=== PATIENT | male | born 1995 | race Two or more races ===

== ENCOUNTER 2020-07-06 12:50 | Emergency (ER) | payer OTHER, SELFPAY ==
[2020-07-06 14:07] VITALS: BP 170/102; PULSE 87; RESP 16; TEMP 37.1; O2SAT 98; BMI 23.6
--- NOTE | 2020-07-06 14:07 | ED_ITS ---
HPI - General Adult General Chief complaint: Skin/Abscess/Foreign Body <Marian Do NP - Last Filed: 07/06/20 14:08> Stated complaint: cyst <Marian Do NP - Last Filed: 07/06/20 14:08> Time Seen by Provider: 07/06/20 14:07 <Marian Do NP - Last Filed: 07/06/20 14:08> Source: patient <MARQUEZ Lea - Last Filed: 07/06/20 18:03> Mode of arrival: ambulatory <MARQUEZ Lea - Last Filed: 07/06/20 18:03> Limitations: no limitations <MARQUEZ Lea - Last Filed: 07/06/20 18:03> History of Present Illness HPI narrative: 25yoM c PMHx of asthma presenting to the ED c c/o an abscess to his left buttocks for the past 3 days worse today. Reports he has had this twice in the past which has always resolved on its own. Denies history of MRSA that he is aware about. Denies any fevers or any other symptoms complaints or concerns at this time. <MARQUEZ Lea - Last Filed: 07/06/20 18:03> Related Data Home medications: Previous Rx's Medication Instructions Recorded acetaminophen [Tylenol Extra 1,000 mg PO QID PRN #14 tab 07/06/20 Strength] cephalexin [Keflex] 500 mg PO Q6H 10 Days #40 cap 07/06/20 doxycycline monohydrate 100 mg PO BID 10 Days #20 cap 07/06/20 ibuprofen 800 mg PO Q8H PRN #14 tab 07/06/20 oxycodone 5 mg PO Q8H PRN #14 tab 07/06/20 <Marian Do NP - Last Filed: 07/06/20 14:08> Allergies/adverse reactions: Allergies Allergy/AdvReac Type Severity Reaction Status Date / Time No Known Allergies Allergy Unverified 03/04/20 16:18 <Marian Do NP - Last Filed: 07/06/20 14:08> Review of Systems Review of Systems: Constitutional : No Fever, No Chills , no body aches, no recent illness Head/Face: No facial swelling, No facial redness ENT/Mouth : No oral/throat swelling, No Hoarseness, No Swallowing Difficulty Eyes: No Eye Pain, No Swelling, No Redness Cardiovascular : No Chest Pain, No SOB, No palpitations Respiratory : No Cough, No Sputum, No Wheezing, No Smoke Exposure, No Dyspnea Gastrointestinal : No Nausea, No Vomiting, No Diarrhea, No abdominal Pain Genitourinary : No Dysuria, No Urinary Frequency, No Hematuria Musculoskeletal : No joint pain, No Myalgias, No Joint Swelling Skin : + skin abscess, No Skin Lesions, No rash Neuro : No Weakness, No Numbness, No Headache, No dizziness, No tingling Psych : No Anxiety/Panic, No Depression Heme/Lymph: No Bruising, No Lymphadenopathy Endocrine : No Polyuria, No Polydipsia Denies changes in lotions or detergents. Denies new medications or any changes in medications. Denies drainage from rash. Denies any recent sick contacts or recent travel. <MARQUEZ Lea - Last Filed: 07/06/20 18:03> Yes all other systems are reviewed and are negative <MARQUEZ Lea - Last Filed: 07/06/20 18:03> [facility] Past Medical History Attestation statement: The following information was validated with the patient. <MARQUEZ Lea - Last Filed: 07/06/20 18:03> Medical History: Medical History Asthma <Marian Do NP - Last Filed: 07/06/20 14:08> Social History Social History: Social History Alcohol intake: never Use of substances other than those prescribed or required for medical reasons: No Advance Directives: No Advance Directives Information Provided: Yes <Marian Do NP - Last Filed: 07/06/20 14:08> Physical Exam Vital Signs: Vital Signs: Last Vital Signs Temp 98.7 F 07/06/20 14:07 Pulse 87 07/06/20 14:07 Resp 16 07/06/20 17:30 BP 170/102 H 07/06/20 14:07 Pulse Ox 98 07/06/20 14:07 Body Mass Index 23.6 <Marian Do NP - Last Filed: 07/06/20 14:08> Vital Signs: Last Vital Signs Temp 98.7 F 07/06/20 14:07 Pulse 87 07/06/20 14:07 Resp 16 07/06/20 17:30 BP 170/102 H 07/06/20 14:07 Pulse Ox 98 07/06/20 14:07 Body Mass Index 23.6 vital signs have been reviewed as normal and appeared to be correct. Blood pressure tachycardic. Heart rate normal. Respiration rate normal. Temperature normal. Oxygen saturation normal. <MARQUEZ Lea - Last Filed: 07/06/20 18:03> Appearance: Alert. Oriented X3. No acute distress. Head: Normal external exam. Normocephalic. Atraumatic. Eyes: PERRLA. EOMI. Conjunctiva and sclera normal. Eyelids normal. ENT: Pharynx normal. Uvula midline. Moist mucous membranes Neck: Normal inspection. Neck supple. FROM. No adenopathy. No meningeal signs. CVS: Normal heart rate and rhythm. Heart sound normal. Pulses normal throughout. Respiratory: No respiratory distress. Painless inspiration. Back: ull range of motion noted. : to the inner left buttocks there is a medium sized fluctuant abscess with moderate surrounding erythema. No active drainage or foreign bodies noted. Does not track into the anus/rectum. No swelling to the scrotum. No inguinal lymphadenopathy. Not consistent with miguelina's. Skin: Skin warm and dry. Normal skin color. Normal skin turgor. No rashes/lesions/lacerations noted. Extremities: Extremities exhibit normal range of motion. Extremities nontender. Neuro: Oriented X 3. No motor deficit. No sensory deficit. Reflexes normal. <MARQUEZ Lea - Last Filed: 07/06/20 18:03> Course Course Course Narrative: 1400-This is a rapid medical exam. Pt here with abscess to left buttocks x 3 days. No fevers, chills. Deferred HPI, ROS, PE to primary provider. <Marian Do NP - Last Filed: 07/06/20 14:08> 25yoM c PMHx of asthma presenting to the ED c c/o an abscess to his left buttocks for the past 3 days worse today. - on exam patient has a abscess to left buttocks with surrounding cellulitis. No streaking. Does not track into the rectum/anus. Not consistent with miguelina's. Patient is tachycardic due to pain although other vitals are within normal limits. Patient is afebrile. Denies history of MRSA. - will give the patient 5 mg of oxycodone, doxycycline, Keflex, apply LMX then performed I&D then re-evaluate. <MARQUEZ Lea - Last Filed: 07/06/20 18:03> Procedures Abscess I/D Site: other (buttocks) <MARQUEZ Lea - Last Filed: 07/06/20 18:03> Side (if applicable): left <MARQUEZ Lea - Last Filed: 07/06/20 18:03> Local Anesthetic: lidocaine 1% <MARQUEZ Lea - Last Filed: 07/06/20 18:03> Amount of anesthesia used (mL): 4 <MARQUEZ Lea - Last Filed: 07/06/20 18:03> Technique: needle aspiration and incised with blade <MARQUEZ Lea - Last Filed: 07/06/20 18:03> Amount of fluid expressed (mL): 10 <MARQUEZ Lea - Last Filed: 07/06/20 18:03> Sent for culture/gram staining?: No <MARQUEZ Lea - Last Filed: 07/06/20 18:03> Irrigation: Yes <MARQUEZ Lea - Last Filed: 07/06/20 18:03> Packing used?: iodoform <MARQUEZ Lea - Last Filed: 07/06/20 18:03> Complications: other (Patient had pain although no other complications) <MARQUEZ Lea Last Filed: 07/06/20 18:03> Medical Decision Making Medical Records Medical records reviewed: Yes I reviewed the patient's medical records. <MARQUEZ Lea - Last Filed: 07/06/20 18:03> Discharge Plan Discharge Clinical Impression: Abscess of skin or subcutaneous tissue, Cellulitis <Marian Do NP - Last Filed: 07/06/20 14:08> Patient Disposition: Home, Self-Care <Marian Do NP - Last Filed: 07/06/20 14:08> Instructions: Cellulitis (ED), Abscess (ED) <Marian Do NP - Last Filed: 07/06/20 14:08> Prescriptions: New ibuprofen 800 mg tablet 800 mg PO Q8H PRN (Reason: pain) Qty: 14 RF: 0 doxycycline monohydrate 100 mg capsule 100 mg PO BID 10 Days Qty: 20 RF: 0 cephalexin [Keflex] 500 mg capsule 500 mg PO Q6H 10 Days Qty: 40 RF: 0 oxycodone 5 mg tablet 5 mg PO Q8H PRN (Reason: pain) Qty: 14 RF: 0 acetaminophen [Tylenol Extra Strength] 500 mg tablet 1,000 mg PO QID PRN (Reason: fever or pain) Qty: 14 RF: 0 <Marian Do NP - Last Filed: 07/06/20 14:08> Referrals: Akshat Swift MD [Physician] - 2 days (for recurrent abscess possible cystic sac removal) PhysicianAkshat [Primary Care Provider] - 2 days (2-3 days for wound check ) <Marian Do NP - Last Filed: 07/06/20 14:08> Stand Alone Forms: Work/School Release <Marian Do NP - Last Filed: 07/06/20 14:08> Print Language: Turkmen <Marian Do NP - Last Filed: 07/06/20 14:08>
[2020-07-06] MEDS: Lidocaine 4 % Cream KIT 1 APPL TOPICAL (17:18)
[2020-07-06] MEDS: cephALEXin 500 MG CAPSULE PO (17:19)
[2020-07-06] MEDS: Lidocaine HCl 1 % MPF 5 ML VIAL SUBCUT (17:19)
[2020-07-06] MEDS: oxyCODONE HCl Immed Release 5 MG TABLET PO (17:19)
[2020-07-06 17:30] VITALS: RESP 16
== END 2020-07-06 18:10 | disposition home or self-care (01) ==
PROVIDERS: Emergency Provider Emergency Medicine Emergency Medical Services
DX: L02.31 Cutaneous abscess of buttock (principal); L03.317 Cellulitis of buttock
CPT/HCPCS: 10060; 99284

== ENCOUNTER 2022-03-27 12:03 | Emergency (ER) | payer MEDICAID, SELFPAY ==
[2022-03-27 12:19] VITALS: BP 184/88; PULSE 66; RESP 12; TEMP 36.9; O2SAT 98; BMI 24.3
[2022-03-27 12:56] VITALS: PULSE 63; O2SAT 99
--- NOTE | 2022-03-27 13:18 | ED_ITS ---
HPI - Male Genitourinary General Chief complaint: Urogenital-Male Stated complaint: Bumps Lower Private Area & STD Check Time Seen by Provider: 03/27/22 12:52 Source: patient Mode of arrival: ambulatory Limitations: no limitations History of Present Illness HPI Narrative: 26-year-old male here with painful lesions to the penis for the last 1 week. Patient reports when urine hit lesions it is quite painful but denies any penile discharge, urinary symptoms, testicular pain. He is sexually active with 1 female partner and does not use any condoms. He denies any previous history of STDs. Related Data Previous Rx's Medication Instructions Recorded acetaminophen 500 mg tablet 1,000 mg PO QID PRN fever or pain 07/06/20 (Tylenol Extra Strength) #14 tabs cephalexin 500 mg capsule (Keflex) 500 mg PO Q6H 10 days #40 caps 07/06/20 doxycycline monohydrate 100 mg 100 mg PO BID 10 days #20 caps 07/06/20 capsule ibuprofen 800 mg tablet 800 mg PO Q8H PRN pain #14 tabs 07/06/20 oxycodone 5 mg tablet 5 mg PO Q8H PRN pain #14 tabs 07/06/20 doxycycline monohydrate 100 mg 100 mg PO BID #14 caps 03/27/22 capsule valacyclovir 1 gram tablet 1,000 mg PO BID #14 tabs 03/27/22 (Valtrex) Allergies Allergy/AdvReac Type Severity Reaction Status Date / Time No Known Allergies Allergy Unverified 03/04/20 16:18 Review of Systems Review of Systems: Yes all other systems are reviewed and are negative Constitutional: Constitutional: Reports no additional constitutional complaints, Denies body ache(s), Denies chills, Denies fever(s), Denies headache(s) and Denies weakness Eyes: Eyes: Reports no additional eye complaints and Denies change in vision ENT: Reports system reviewed and no additional complaints, except as documented, Denies dizziness, Denies headache(s), Denies nasal congestion, Denies nasal discharge and Denies neck pain Cardiovascular: Cardiovascular: Reports no additional cardiovascular complaints, Denies chest pain, Denies leg edema and Denies dyspnea Respiratory: Respiratory: Reports no additional respiratory complaints, Denies cough and Denies dyspnea Gastrointestinal: Gastrointestinal: Reports no additional gastrointestinal complaints, Denies abdominal pain, Denies diarrhea, Denies nausea and Denies vomiting Genitourinary: Genitourinary: Denies hematuria, Denies dysuria, Denies flank pain, Denies penile discharge, Denies testicular pain and Denies urinary incontinence Comments: Penile lesion Musculoskeletal: Musculoskeletal: Reports no additional musculoskeletal complaints, Denies back pain, Denies arthralgias, Denies joint swelling, Denies neck pain, Denies numbness and Denies tingling Integumentary/Breasts: Skin/Breast: Reports system reviewed and no additional complaints, except as docu and Reports rash Neurologic: Reports system reviewed and no additional complaints, except as documented, Denies Abnormal speech present, Denies dizziness, Denies headache(s), Denies numbness, Denies tingling and Denies weakness PMFSH Past Medical History Attestation statement: The following information was validated with the patient. Source: old records reviewed and nursing notes reviewed Medical History Asthma Social History Social History Alcohol intake: never Advance Directives: No Advance Directives Information Provided: No Physical Exam Vital Signs: Vital Signs: Last Vital Signs Temp 98.5 F 03/27/22 12:19 Pulse 63 03/27/22 12:56 Resp 12 03/27/22 12:19 BP 184/88 H 03/27/22 12:19 Pulse Ox 99 03/27/22 12:56 O2 Del Method 03/27/22 12:56 BMI result Body Mass Index 24.3 Const: General: cooperative, healthy appearing, comfortable and no acute distress Orientation/consciousness: patient oriented x3 Limitations: no limitations HEENT: Head: Yes normal to inspection Ears: hearing grossly normal bilaterally General nose exam: Normal external nose present Face and sinus: Yes normal facial exam Mouth: Normal oral and palatal mucosa present Throat: Yes posterior oropharynx normal Eyes: General: appearance normal, both eyes and all related structures Pupils: Equal, round and reactive pupils present Neck: Neck: Yes normal visual inspection Chest: Chest palpation & inspection: normal inspection of the chest Resp: Effort & Inspection: normal respiratory effort Auscultation: clear to auscultation bilaterally Cardio: Rate: regular rate Rhythm: regular rhythm Peripheral pulses: Peripheral pulses 2+ throughout GI: Inspection: Yes normal to inspection Palpation (GI): Soft to palpation and nontender Auscultation: normal bowel sounds : 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: Yes Genital lesions present (over meatus, shaft of penis-painful ulcerations with erythmatic base) Penis: Genital lesions present (over meatus, shaft of penis-painful ulcerations with erythmatic base) Back/Spine/Pelvis: Thoracic/Lumbar Spine: thoracic and lumbar spine normal to inspection Skin: General skin exam: no rashes or lesions noted Neuro: General: patient oriented x3, no focal motor deficits and normal sensation to monofilament Cranial nerves: Yes Equal, round and reactive pupils present Cognition (Neuro): normal cognition Speech: No Abnormal speech present Gait exam (Neuro): Normal gait present Motor exam (neuro): 5/5 motor strength present throughout Extrem: General: Yes normal to inspection MDM - Male Genitourinary MDM Narrative Medical decision making narrative: 26-year-old male here with painful penile lesions for 1 week. Exam c/w with herpes genitalis. Additional testing was sent for gonorrhea and chlamydia. Patient will be treated prophylactically with ceftriaxone 500 mg IM Will send home with doxycycline and Valtrex. A viral culture was taken of a penile lesion Medical Records Attestation: I reviewed the patient's medical records. Lab Data Attestation: I reviewed the patient's lab results. Discharge Plan Discharge Clinical Impression: Herpes, Concern about STD in male without diagnosis Patient Disposition: Home, Self-Care Instructions: Genital Herpes Simplex (ED), Sexually Transmitted Diseases (ED) Additional Instructions: We send testing for gonorrhea, chlamydia and herpes. These lesions do look like herpes lesion. We are treating you prophylactically for STDs as well as herpes. We will call you in several days although these results may take up to 7 days to come back. We only call you if they are positive. You should not be having sex with active lesions. You should inform your sexual partner if you are negative Prescriptions: New valacyclovir [Valtrex] 1 gram tablet 1,000 mg PO BID Qty: 14 0RF doxycycline monohydrate 100 mg capsule 100 mg PO BID Qty: 14 0RF No Action ibuprofen 800 mg tablet 800 mg PO Q8H PRN (Reason: pain) Qty: 14 0RF doxycycline monohydrate 100 mg capsule 100 mg PO BID 10 Days Qty: 20 0RF cephalexin [Keflex] 500 mg capsule 500 mg PO Q6H 10 Days Qty: 40 0RF oxycodone 5 mg tablet 5 mg PO Q8H PRN (Reason: pain) Qty: 14 0RF acetaminophen [Tylenol Extra Strength] 500 mg tablet 1,000 mg PO QID PRN (Reason: fever or pain) Qty: 14 0RF Referrals: Physician,None [Primary Care Provider] - Interventions: ED Discharge Assessment Last Done: 03/27/22 13:56 Discharge Date/Time: 03/27/22 13:57
[2022-03-27] MEDS: cefTRIAXone sodium 500 MG, Lidocaine HCl 1 % MPF 1 ML IM (13:48)
[2022-03-27 15:24] LABS: CT PCR NOT DETECTED (Not Detect.); NG PCR NOT DETECTED (Not Detect.)
== END 2022-03-27 13:57 | disposition home or self-care (01) ==
PROVIDERS: Nurse Practitioner Family; Emergency Provider Student in an Organized Health Care Education/Training Program
DX: A60.01 Herpesviral infection of penis (principal); Z20.2 Contact with and (suspected) exposure to infections with a predominantly sexual mode of transmission
CPT/HCPCS: 87255; 87491; 87591; 96372; 99283; 99284; J0696

== ENCOUNTER 2023-09-23 08:15 | Emergency (ER) | payer MEDICAID, SELFPAY ==
[2023-09-23 08:39] VITALS: BP 131/86; PULSE 77; RESP 20; TEMP 36.1; O2SAT 97; BMI 26.6
--- NOTE | 2023-09-23 10:06 | ED.SKABFB ---
HPI - Skin/Abscess/Foreign Bdy General Chief complaint: Skin/Abscess/Foreign Body Stated complaint: Cyst Time Seen by Provider: 09/23/23 09:26 Source: patient and RN notes reviewed Mode of arrival: ambulatory Limitations: no limitations History of Present Illness HPI narrative: This is a 28-year-old male presenting to the emergency department for evaluation of left groin cyst that is becoming more large and hard since last week. Patient states that he has had them before however they normally pop on their own however this time it is not. He denies any fevers, chills, chest pain, shortness of breath, abdominal pain, nausea, vomiting or diarrhea. Denies any dysuria, hematuria, urinary frequency or urgency. Denies testicular swelling or pain. Denies any new sexual partners. Denies any concerns for sexually transmitted infections. Denies any other complaints or concerns at this time. MD complaint: abscess/boil Onset (ago): day(s) Severity: moderate Quality: aching Pain Consistency: constant Relieving factors: none Exacerbating factors: palpation Context: none Associated symptoms: denies other symptoms Treatments prior to arrival: none Related Data Previous Rx's ?Medication ?Instructions ?Recorded acetaminophen 500 mg tablet 1,000 mg (2 x 500 mg) PO QID PRN 07/06/20 (Tylenol Extra Strength) fever or pain #14 tabs cephalexin 500 mg capsule (Keflex) 500 mg PO Q6H 10 days #40 caps 07/06/20 doxycycline monohydrate 100 mg 100 mg PO BID 10 days #20 caps 07/06/20 capsule ibuprofen 800 mg tablet 800 mg PO Q8H PRN pain #14 tabs 07/06/20 oxycodone 5 mg tablet 5 mg PO Q8H PRN pain #14 tabs 07/06/20 doxycycline monohydrate 100 mg 100 mg PO BID #14 caps 03/27/22 capsule valacyclovir 1 gram tablet 1,000 mg PO BID #14 tabs 03/27/22 (Valtrex) cephalexin 250 mg capsule 250 mg PO Q6H 7 days #28 caps 09/23/23 doxycycline hyclate 100 mg tablet 100 mg PO BID 7 days #14 tabs 09/23/23 Allergies Allergy/AdvReac Type Severity Reaction Status Date / Time No Known Allergies Allergy Verified 09/23/23 08:42 Review of Systems Review of Systems: Yes all other systems are reviewed and are negative Constitutional: Constitutional: Reports as per [facility] Past Medical History Medical History Asthma Social History Social History Alcohol intake: never Advance Directives: No Advance Directives Information Provided: No Physical Exam Vital Signs: Vital Signs: Last Vital Signs Temp 97 F 09/23/23 08:39 Pulse 77 09/23/23 08:39 Resp 20 09/23/23 08:39 BP 131/86 09/23/23 08:39 Pulse Ox 97 09/23/23 08:39 O2 Del Method Room Air 09/23/23 08:39 BMI result Body Mass Index 26.6 Const: General: cooperative, comfortable and no acute distress Orientation/consciousness: patient oriented x3 Limitations: no limitations HEENT: Head: Yes normal to inspection, Yes normocephalic and Yes atraumatic Ears: hearing grossly normal bilaterally General nose exam: Normal external nose present Face and sinus: Yes normal facial exam Mouth: Normal oral and palatal mucosa present, oropharynx normal and moist mucous membranes Throat: Yes posterior oropharynx normal Eyes: General: appearance normal, both eyes and all related structures Eyelids: Yes eyelids normal Conjunctivae: conjunctivae normal Sclerae: sclerae normal Pupils: Equal, round and reactive pupils present EOM: EOMs intact bilaterally Neck: Neck: Yes normal visual inspection, Yes full ROM and Yes no lymphadenopathy Lymphatic: no lymphadenopathy noted Chest: Chest palpation & inspection: normal inspection of the chest Resp: Effort & Inspection: normal respiratory effort and able to speak in complete sentences Auscultation: clear to auscultation bilaterally, no crackles, no rales, no rhonchi and no wheezes Cardio: Rate: regular rate Rhythm: regular rhythm Heart sounds: S1 normal heart sound present and S2 normal heart sound present GI: Inspection: Yes normal to inspection : Other: Examination performed with STEVE Mcgrath, at bedside. Left inguinal region with 2 x 2 round indurated area that is tender to palpation, with center pustule noted, no fluctuance or drainage noted. Does not extend into the testes. Skin: General skin exam: no rashes or lesions noted Trauma: no lacerations or abrasions Wounds: no wounds Neuro: General: patient oriented x3 and moves all extremities Cranial nerves: Yes Equal, round and reactive pupils present Extrem: General: Yes normal to inspection Right upper extremity: normal to inspection Left upper extremity: normal to inspection Right lower extremity: normal to inspection Left lower extremity: normal to inspection Medical Decision Making Medical Decision Making MDM Narrative: This is a 28-year-old male presenting to the emergency department with complaints of left inguinal cyst. Patient states that over the last week he is noticed pain and increased redness and swelling. Patient has no testicular swelling or pain. No urinary symptoms. No concerns for STIs. On examination, patient has a 2 x 2 cm indurated mass that is tender to palpation, erythematous, no fluctuance noted. Patient's symptoms consistent with cellulitis, does not extend into the testes, does not have any testicular swelling or pain. Too early for incision and drainage. Will defer imaging at this time. Patient requiring doxycycline and Keflex for treatment. Educated the importance of applying warm compresses to the area and given strict return precautions. He understands agrees with plan. Patient stable for discharge. Differential Diagnosis Differential Diagnoses: The differential diagnosis associated with the presentation includes Cellulitis, abscess, cyst, herpes-unlikely Discharge Plan Discharge Clinical Impression: Cellulitis Patient Disposition: Home, Self-Care Instructions: Cellulitis (ED), Warm Compress or Soak (ED) Additional Instructions: You have a skin infection. You need to be put on two different antibiotics. Please take prescribed antibiotics as directed, finish the entire course even if you are feeling better. Warm compresses multiple times per day. This will help bring the infection to the surface. Do not pick her attempted to drain area by yourself. Take ibuprofen and/or Tylenol as needed for pain and symptoms. If any new or worsening symptoms occur including but not limited to fevers, chills, worsening swelling, please return for re-evaluation. Prescriptions: New cephalexin 250 mg capsule 250 mg PO Q6H 7 Days Qty: 28 0RF doxycycline hyclate 100 mg tablet 100 mg PO BID 7 Days Qty: 14 0RF No Action ibuprofen 800 mg tablet 800 mg PO Q8H PRN (Reason: pain) Qty: 14 0RF doxycycline monohydrate 100 mg capsule 100 mg PO BID 10 Days Qty: 20 0RF cephalexin [Keflex] 500 mg capsule 500 mg PO Q6H 10 Days Qty: 40 0RF oxycodone 5 mg tablet 5 mg PO Q8H PRN (Reason: pain) Qty: 14 0RF acetaminophen [Tylenol Extra Strength] 500 mg tablet 1,000 mg PO QID PRN (Reason: fever or pain) Qty: 14 0RF valacyclovir [Valtrex] 1 gram tablet 1,000 mg PO BID Qty: 14 0RF doxycycline monohydrate 100 mg capsule 100 mg PO BID Qty: 14 0RF Print Language: Welsh
[2023-09-23 10:27] VITALS: BP 158/87; PULSE 59; RESP 16; TEMP 36.4
== END 2023-09-23 10:28 | disposition home or self-care (01) ==
PROVIDERS: Emergency Provider Student in an Organized Health Care Education/Training Program
DX: L03.314 Cellulitis of groin (principal)
CPT/HCPCS: 99282; 99283

== ENCOUNTER 2023-11-20 16:26 | Emergency (ER) | payer MEDICAID, SELFPAY ==
--- NOTE | ~2023-11-20 | CT_ITS ---
EXAMINATION: CT SCAN OF THE TEMPORAL BONES CLINICAL INFORMATION: Growth left ear, rule out abscess COMPARISON: None. TECHNIQUE: Multidetector helical imaging was performed in the axial plane following intravenous administration of 85 mL Omnipaque 350 with generation of oblique axial and coronal reformatted projections. This CT examination was performed using dose optimization techniques as appropriate, variously including the following: *Automated exposure control *Adjustment of mA and/or kV according to patient size (this includes techniques or standardized protocols for targeted exams where dose is matched to indication/reason for exam; i.e. extremities or head) *Use of iterative reconstruction technique DLP: 537 mGy-cm. FINDINGS: -- Left Temporal Bone -- There is a low density rounded lesion demonstrating peripheral hyperdensity/enhancement centered along the floor of the outer cartilaginous left EAC, measuring approximately 1.6 cm in transverse dimension, 1.1 cm in craniocaudal dimension, and 0.8 cm in anteroposterior dimension. There is associated circumferential thickening of the adjacent soft tissues along the outer left EAC contributing to moderate to severe narrowing of the outer left EAC. Given the provided clinical history, an abscess versus superinfected cystic lesion at this location is not excluded. Asymmetric nonpathologic size criteria left intraparotid lymph node, presumably reactive. The tympanic membrane is intact without thickening. The scutum is normal. The middle ear cleft is clear. The ossicles are normal without erosive change. The round and oval windows are normal. There is normal mineralization of the otic capsule. The tegmen tympani and tegmen mastoideum are intact. The mastoid air cells are clear. The cochlea, vestibule, and semicircular canals are normal. The vestibular aqueduct is normal. The bony internal auditory canal is normal. The facial nerve course is normal. -- Right Temporal Bone -- The periauricular soft tissues are unremarkable. The external auditory canal is clear. The tympanic membrane is intact without thickening. The scutum is normal. The middle ear cleft is clear. The ossicles are normal without erosive change. The round and oval windows are normal. There is normal mineralization of the otic capsule. The tegmen tympani and tegmen mastoideum are intact. The mastoid air cells are clear.The cochlea, vestibule, and semicircular canals are normal. The vestibular aqueduct is normal. The bony internal auditory canal is normal. The facial nerve course is normal. -- Other Findings -- The bilateral carotid canals and jugular foramina are normal. Mild to moderate patchy paranasal sinus mucosal disease. The orbits are unremarkable. The visualized intracranial structures are normal. 3 mm pedunculated polypoid lesion projecting off the left torus tubarius, presumed small polyp. CT/CT mastoid IMPRESSION: 1.6 x 1.1 x 0.8 cm low density rounded lesion demonstrating peripheral hyperdensity/enhancement along the floor of the outer cartilaginous left EAC, which in conjunction with circumferential soft tissue thickening of the outer cartilaginous EAC contributes to moderate to severe luminal narrowing. Given the provided clinical history, an abscess versus superinfected cystic lesion at this location is not excluded. The bony left EAC is normal and widely patent. Asymmetric nonpathologic size criteria left intraparotid lymph node, presumably reactive.
[2023-11-20 17:06] VITALS: BP 140/86; PULSE 70; RESP 16; TEMP 37; O2SAT 97; BMI 25.8
--- NOTE | 2023-11-20 17:09 | ED.GENADULT ---
HPI - General Adult General Chief complaint: Ear Problems Stated complaint: foreign skin in ear Time Seen by Provider: 11/20/23 17:46 Source: patient Mode of arrival: ambulatory Limitations: no limitations History of Present Illness ED Provider: Amador MANTILLA HPI narrative: 28-year-old male presents with growth in his left ear ongoing for the past few days he is unsure exactly when it started however he thought was a pimple he tried to pop it, since then has been having pain, swelling particularly in the preauricular region. Denies fevers, chills, trauma, headache, vision changes, dizziness, weakness, tinnitus, chest pain, shortness of breath, nausea, vomiting or recent illness. Related Data Previous Rx's ?Medication ?Instructions ?Recorded acetaminophen 500 mg tablet 1,000 mg (2 x 500 mg) PO QID PRN 07/06/20 (Tylenol Extra Strength) fever or pain #14 tabs cephalexin 500 mg capsule (Keflex) 500 mg PO Q6H 10 days #40 caps 07/06/20 doxycycline monohydrate 100 mg 100 mg PO BID 10 days #20 caps 07/06/20 capsule ibuprofen 800 mg tablet 800 mg PO Q8H PRN pain #14 tabs 07/06/20 oxycodone 5 mg tablet 5 mg PO Q8H PRN pain #14 tabs 07/06/20 doxycycline monohydrate 100 mg 100 mg PO BID #14 caps 03/27/22 capsule valacyclovir 1 gram tablet 1,000 mg PO BID #14 tabs 03/27/22 (Valtrex) cephalexin 250 mg capsule 250 mg PO Q6H 7 days #28 caps 09/23/23 doxycycline hyclate 100 mg tablet 100 mg PO BID 7 days #14 tabs 09/23/23 cephalexin 500 mg tablet 500 mg PO Q6H 10 days #40 tabs 11/20/23 doxycycline monohydrate 100 mg 100 mg PO BID 7 days #14 tabs 11/20/23 tablet Allergies Allergy/AdvReac Type Severity Reaction Status Date / Time No Known Allergies Allergy Verified 11/20/23 17:07 Review of Systems Review of Systems: Yes all other systems are reviewed and are negative PMFSH Past Medical History Attestation statement: The following information was validated with the patient. Source: old records reviewed and nursing notes reviewed Medical History Asthma Social History Social History Alcohol intake: never Advance Directives: No Advance Directives Information Provided: No Do you have a plan to hurt others: No Plan Physical Exam ED Vital Signs: Vital Signs - 24 hr 11/20/23 17:06 11/20/23 20:08 11/20/23 21:16 Temperature 98.6 F 98.3 F 98.0 F Pulse Rate 70 63 63 Respiratory Rate 16 18 20 Blood Pressure 140/86 H 126/82 134/89 Pulse Oximetry 97 98 98 Oxygen Delivery Method Room Air Room Air Room Air 11/20/23 21:39 Temperature 98.0 F Pulse Rate 63 Respiratory Rate 20 Blood Pressure 134/89 Pulse Oximetry 98 Oxygen Delivery Method Room Air BMI result Body Mass Index 25.8 vss Appearance: Alert.? Oriented X3.? No acute distress.? Head: Normocephalic, atraumatic, no step-offs or deformities Eyes: Pupils equal, round and reactive to light.? ENT: Pharynx normal.??+ discomfort w/ palpation of left preauricular region, fluctant area in l ear blow machine tender starch spraying to palpation. Normal R ear. No pain w/ manipulation of right ear. No mastoid tenderness b/l. Neck: Normal inspection.? Neck supple.? CVS: Normal heart rate and rhythm.? Pulses normal.? Respiratory: No respiratory distress.? Breath sounds normal.? Abdomen: Soft and nontender.? Skin: Skin warm and dry.? Normal skin color.? Normal skin turgor.? Extremities: No lower extremity edema.? No calf ttp. 5/5 strength to bilateral upper and lower extremities Neuro: Oriented X 3.? No motor deficit.? No sensory deficit. CN 2-12 intact Course Course Course Narrative: This is a Rapid Medical Examination (RME) performed by Gabino Rico PA-C in triage. Full HPI, ROS, assessment and treatment plan per primary provider in the Main ED. 28 yo male here for eval of growth in left ear canal x days. ttp. now endorses decreased hearing from left ear. difficult to examine in triage. area ttp. unable to view left EAC or TM. Plan: possible drainage in ED Reevaluation(s) Reevaluation #1: Sign out to Susy ZAYAS pending labs, CT mastoid Time: 18:26 Reevaluation #2: I received patient in sign-out from my colleague Bhavna. CBC without leukocytosis or left shift. No anemia. H&H stable. Chemistry without acute electrolyte abnormality requiring intervention. CT mastoid showing 1.6 x 1.1 x 0.8 cm low-density rounded lesion demonstrating peripheral hyperdensity/enhancement along the floor of the outer cartilaginous left EAC which in conjunction with circumferential soft tissue thickening of the outer cartilaginous EAC contributes to moderate to severe luminal narrowing. Given provided clinical history, an abscess versus superinfected cystic lesion is not excluded. The bony left EAC is normal and widely patent. > these findings were discussed with my attending physician Dr. Argueta who has also evaluated patient. We attempted to I and D the area with success. Purulent fluid removed from abscess using 11 blade. Loculations broken up. Left EAC now patent. EAC flushed with saline. TM intact. Patient will be given 1st dose of doxy and Keflex in ED. The rest of this course will be sent to his pharmacy. ENT referral provided. Patient has remained stable throughout ED visit today. Discussed worrisome signs and symptoms and when to return to the ED. All questions answered at this time. Patient is agreeable with disposition and stable for discharge. EXAMINATION: CT SCAN OF THE TEMPORAL BONES CLINICAL INFORMATION: Growth left ear, rule out abscess COMPARISON: None. TECHNIQUE: Multidetector helical imaging was performed in the axial plane following intravenous administration of 85 mL Omnipaque 350 with generation of oblique axial and coronal reformatted projections. This CT examination was performed using dose optimization techniques as appropriate, variously including the following: *Automated exposure control *Adjustment of mA and/or kV according to patient size (this includes techniques or standardized protocols for targeted exams where dose is matched to indication/reason for exam; i.e. extremities or head) *Use of iterative reconstruction technique DLP: 537 mGy-cm. FINDINGS: -- Left Temporal Bone -- There is a low density rounded lesion demonstrating peripheral hyperdensity/enhancement centered along the floor of the outer cartilaginous left EAC, measuring approximately 1.6 cm in transverse dimension, 1.1 cm in craniocaudal dimension, and 0.8 cm in anteroposterior dimension. There is associated circumferential thickening of the adjacent soft tissues along the outer left EAC contributing to moderate to severe narrowing of the outer left EAC. Given the provided clinical history, an abscess versus superinfected cystic lesion at this location is not excluded. Asymmetric nonpathologic size criteria left intraparotid lymph node, presumably reactive. The tympanic membrane is intact without thickening. The scutum is normal. The middle ear cleft is clear. The ossicles are normal without erosive change. The round and oval windows are normal. There is normal mineralization of the otic capsule. The tegmen tympani and tegmen mastoideum are intact. The mastoid air cells are clear. The cochlea, vestibule, and semicircular canals are normal. The vestibular aqueduct is normal. The bony internal auditory canal is normal. The facial nerve course is normal. -- Right Temporal Bone -- The periauricular soft tissues are unremarkable. The external auditory canal is clear. The tympanic membrane is intact without thickening. The scutum is normal. The middle ear cleft is clear. The ossicles are normal without erosive change. The round and oval windows are normal. There is normal mineralization of the otic capsule. The tegmen tympani and tegmen mastoideum are intact. The mastoid air cells are clear.The cochlea, vestibule, and semicircular canals are normal. The vestibular aqueduct is normal. The bony internal auditory canal is normal. The facial nerve course is normal. -- Other Findings -- The bilateral carotid canals and jugular foramina are normal. Mild to moderate patchy paranasal sinus mucosal disease. The orbits are unremarkable. The visualized intracranial structures are normal. 3 mm pedunculated polypoid lesion projecting off the left torus tubarius, presumed small polyp. CT/CT mastoid IMPRESSION: 1.6 x 1.1 x 0.8 cm low density rounded lesion demonstrating peripheral hyperdensity/enhancement along the floor of the outer cartilaginous left EAC, which in conjunction with circumferential soft tissue thickening of the outer cartilaginous EAC contributes to moderate to severe luminal narrowing. Given the provided clinical history, an abscess versus superinfected cystic lesion at this location is not excluded. The bony left EAC is normal and widely patent. Asymmetric nonpathologic size criteria left intraparotid lymph node, presumably reactive. Time: 21:18 Medications Administered Discontinued Medications Generic Name Dose Route Start Last Admin Trade Name Radha PRN Reason Stop Dose Admin Cephalexin HCl 500 mg 11/20/23 21:16 11/20/23 21:33 Cephalexin 500 Mg Capsule PO 11/20/23 21:17 500 mg ONCE ONE Administration Doxycycline Monohydrate 100 mg 11/20/23 21:16 11/20/23 21:33 Doxycycline Monohydrate 100 Mg Capsule PO 11/20/23 21:17 100 mg ONCE ONE Administration Iohexol 85 ml 11/20/23 19:54 11/20/23 19:55 Iohexol 350 Mg/Ml 100 Ml Infus..Btl IV 11/20/23 19:55 85 ml ONCE ONE Administration Ketorolac Tromethamine 30 mg 11/20/23 18:26 11/20/23 18:37 Ketorolac Tromethamine 30 Mg/Ml Vial IM 11/20/23 18:27 30 mg ONCE ONE Administration Lidocaine HCl 5 ml 11/20/23 21:00 11/20/23 21:04 Lidocaine Hcl 1 % Mpf 5 Ml Vial INFILTRATI 11/20/23 21:01 5 ml ONCE ONE Administration Procedures Abscess I/D Site: face (Left ear) Side (if applicable): left Local Anesthetic: lidocaine 1% Amount of anesthesia used (mL): 1 Technique: incised with blade Amount of fluid expressed (mL): 1 Sent for culture/gram staining?: No Irrigation: No Packing used?: none Medical Decision Making Medical Decision Making MDM Narrative: 1800 28 year old male presents w/ growth in ear x few days PE - refer to image and pe hx and pe concerning for posisble abscess vs cellulitis. Unlikely mastoiditis , osteo, ruptured tm Plan- labs, ct mastoid ( discussed this case w/ my attending who agrees with plan) Differential Diagnosis Differential Diagnoses: The differential diagnosis associated with the presentation includes hx and pe concerning for posisble abscess vs cellulitis. Unlikely mastoiditis , osteo, ruptured tm Admission/Observation Consideration of admission/observation: Escalation of care including admission/observation considered possible Lab Data 11/20/23 18:08 11/20/23 18:08 Labs: Lab Results 11/20/23 Range/Units 18:08 WBC 8.0 (4.8-10.8) X10*3/uL RBC 4.63 (4.60-5.80) X10*6/uL Hgb 14.0 (14.0-18.0) g/dl Hct 40.5 L (42.0-52.0) % MCV 87.5 (80.0-98.0) fL MCH 30.2 (27.0-33.0) pg MCHC 34.6 (31.0-36.0) g/dl RDW 12.8 (11.0-16.0) % Plt Count 253 (160-400) X10*3/uL MPV 9.3 L (9.4-12.4) fL Immature Gran % (Auto) 0.3 (0.0-0.4) % Neut % (Auto) 53.1 (45-73) % Lymph % (Auto) 39.0 (20-40) % [place] % (Auto) 4.0 (2-11) % Eos % (Auto) 3.1 (0-4) % Baso % (Auto) 0.5 (0-2) % Lymph # (Auto) 3.1 (1.2-4.9) X10*3/uL [place] # (Auto) 0.3 (0.1-1.2) X10*3/uL Eos # (Auto) 0.3 (0.0-0.4) X10*3/uL Baso # (Auto) 0.0 (0.0-0.2) X10*3/uL Abs Immat Gran (auto) 0.02 (0.00-0.03) X10*3/uL Absolute Neuts (auto) 4.3 (2.0-8.3) x10*3/uL Absolute Nucleated RBC 0.000 (0.0-0.012) X10*3/uL Nucleated RBC % (auto) 0.0 (0.0-0.2) /100WBC ESR 3 (0-15) MM/HR Sodium 141 (135-145) mmol/L Potassium 3.8 (3.3-5.1) mmol/L Chloride 107 (96-108) mmol/L Carbon Dioxide 25 (22-29) mmol/L Anion Gap 13 (12-20) BUN 15 (9-16) mg/dL Creatinine 0.99 (0.5-1.4) mg/dL Estim Creat Clear Calc 113.6 Estimated GFR > 60 Random Glucose 94 (60-115) mg/dL Calcium 9.6 (8.4-10.2) mg/dL Total Bilirubin 0.2 (0.0-1.0) mg/dL AST 14 (5-37) U/L ALT 16 (0-40) U/L Alkaline Phosphatase 67 (39-117) U/L C-Reactive Protein 0.27 (< or = 0.50) mg/dL Total Protein 6.9 (6.5-8.0) g/dL Albumin 4.4 (3.5-5.0) g/dL External Record Review External record reviewed: Office record, Outpatient record and Prior outpatient labs Prescription Management I considered prescription management with: Antibiotic Critical Care Time Critical Care Time Critical Care Time: Yes Total Critical Care Time: 35 Attestation: I attest to this time spent taking care of the patient, obtaining history, physical, reviewing labs, imaging, speaking to my attending, specialist or hospitalist. Discharge Plan Discharge Clinical Impression: Abscess of external ear Patient Disposition: Home, Self-Care Instructions: Abscess Follow-up (ED) Additional Instructions: The abscess within your left ear was drained today. Keflex is an antibiotic that has been sent to your pharmacy. Take this 4 times daily as prescribed. Doxycycline is another antibiotic that has been sent to your pharmacy. Take this twice daily for 7 days as prescribed. You were given your 1st dose of these medications in the ED today. Follow up with ENT. youve been provided with their contact information. call them to make an appointment. Take your medications as prescribed. If you were prescribed antibiotics today, it is important that you take your medication to their entirety, do not skip any doses, do not finish them early. Follow-up with your primary care provider this week. Return to the emergency department with new or worsening symptoms. Such as fevers, chills, chest pain, shortness of breath, nausea, vomiting, dizziness, headache, vision changes, lethargy In case of emergency call 911 Prescriptions: New cephalexin 500 mg tablet 500 mg PO Q6H 10 Days Qty: 40 0RF doxycycline monohydrate 100 mg tablet 100 mg PO BID 7 Days Qty: 14 0RF No Action ibuprofen 800 mg tablet 800 mg PO Q8H PRN (Reason: pain) Qty: 14 0RF doxycycline monohydrate 100 mg capsule 100 mg PO BID 10 Days Qty: 20 0RF cephalexin [Keflex] 500 mg capsule 500 mg PO Q6H 10 Days Qty: 40 0RF oxycodone 5 mg tablet 5 mg PO Q8H PRN (Reason: pain) Qty: 14 0RF acetaminophen [Tylenol Extra Strength] 500 mg tablet 1,000 mg PO QID PRN (Reason: fever or pain) Qty: 14 0RF valacyclovir [Valtrex] 1 gram tablet 1,000 mg PO BID Qty: 14 0RF doxycycline monohydrate 100 mg capsule 100 mg PO BID Qty: 14 0RF cephalexin 250 mg capsule 250 mg PO Q6H 7 Days Qty: 28 0RF doxycycline hyclate 100 mg tablet 100 mg PO BID 7 Days Qty: 14 0RF Referrals: Aubrey Davidson [Physician] - 1 day Interventions: ED Discharge Assessment Last Done: 11/20/23 21:39 Discharge Date/Time: 11/20/23 21:39 Print Language: Norwegian
[2023-11-20 18:17] LABS: Basophils Percent Auto 0.5 % (0-2); Eosinophils Absolute Auto 0.3 X10*3/uL (0.0-0.4); Eosinophils Percent Auto 3.1 % (0-4); Hematocrit 40.5 % (42.0-52.0); Imm Gran Abs Auto 0.02 X10*3/uL (0.00-0.03); Imm Gran Pct Auto 0.3 % (0.0-0.4); Lymphocytes Absolute Auto 3.1 X10*3/uL (1.2-4.9); MANUAL DIFF FLAG NO; Mean Corpuscular HGB Conc 34.6 g/dl (31.0-36.0); Mean Corpuscular Hemoglobin 30.2 pg (27.0-33.0); Mean Corpuscular Volume 87.5 fL (80.0-98.0); Mean Platelet Volume 9.3 fL (9.4-12.4); Monocytes Absolute Auto 0.3 X10*3/uL (0.1-1.2); Neutrophils Absolute Auto 4.3 x10*3/uL (2.0-8.3); Neutrophils Percent Auto 53.1 % (45-73); Platelet Count 253 X10*3/uL (160-400); Red Blood Count 4.63 X10*6/uL (4.60-5.80); Red Cell Distribution Width 12.8 % (11.0-16.0)
[2023-11-20 18:30] LABS: Alanine Aminotransferase 16 U/L (0-40); Albumin Level 4.4 g/dL (3.5-5.0); Alkaline Phosphatase 67 U/L (39-117); Anion Gap 13 (12-20); Aspartate Amino Transferase 14 U/L (5-37); Bilirubin Total 0.2 mg/dL (0.0-1.0); Blood Urea Nitrogen 15 mg/dL (9-16); C Reactive Protein 0.27 mg/dL (< or = 0.50); Calcium 9.6 mg/dL (8.4-10.2); Carbon Dioxide 25 mmol/L (22-29); Chloride 107 mmol/L (96-108); Creatinine Clr Calc Pharmacy 113.6; Estimated Glomerular Filt Rate > 60; Glucose Random 94 mg/dL (60-115); Potassium 3.8 mmol/L (3.3-5.1); Sodium 141 mmol/L (135-145); Total Protein 6.9 g/dL (6.5-8.0)
[2023-11-20] MEDS: Ketorolac Tromethamine 30 MG/ML VIAL IM (18:37)
[2023-11-20 19:19] LABS: Erythrocyte Sedimentation Rate 3 MM/HR (0-15)
[2023-11-20] MEDS: iohexoL 350 MG/ML 100 ML INFUS..BTL 85 ML IV (19:55)
[2023-11-20 20:08] VITALS: BP 126/82; PULSE 63; RESP 18; TEMP 36.8; O2SAT 98
[2023-11-20] MEDS: Lidocaine HCl 1 % MPF 5 ML VIAL INFILTRATI (21:04)
[2023-11-20 21:16] VITALS: BP 134/89; PULSE 63; RESP 20; TEMP 36.7; O2SAT 98
[2023-11-20] MEDS: Doxycycline Monohydrate 100 MG CAPSULE PO (21:33)
[2023-11-20] MEDS: cephALEXin 500 MG CAPSULE PO (21:33)
[2023-11-20 21:39] VITALS: BP 134/89; PULSE 63; RESP 20; TEMP 36.7; O2SAT 98
== END 2023-11-20 21:39 | disposition home or self-care (01) ==
PROVIDERS: Physician Assistant; Emergency Provider Internal Medicine
DX: H60.02 Abscess of left external ear (principal); J45.909 Unspecified asthma, uncomplicated
CPT/HCPCS: 36415; 69000; 70481; 80053; 85025; 85652; 86140; 96372; 99283; 99284; J1885; Q9967